=== PATIENT | female | born 1980 ===

== ENCOUNTER 2022-10-01 18:14 | Emergency (ER) | payer MEDICAID ==
[~2022-10-01] VITALS: Ht 162.6 cm; Wt 78.2 kg
[2022-10-01] MEDS ORDERED: acetaminophen 325mg tablet PO ONE (21:10)
[2022-10-01 21:27] VITALS: BP 113/77
--- NOTE | 2022-10-01 21:42 | NUR ---
AGREE WITH PHARM SPEC ASSESSMENT OF PATIENT.
== END 2022-10-01 21:42 | disposition home or self-care (01) ==
LOC: ER 18:15
DX: S06.0X0A Concussion without loss of consciousness, initial encounter (principal); Z88.8 Allergy status to other drugs, medicaments and biological substances; W19.XXXA Unspecified fall, initial encounter; Y93.89 Activity, other specified; Y92.89 Other specified places as the place of occurrence of the external cause; Y99.8 Other external cause status
CPT/HCPCS: 70450; 99284